=== PATIENT | female | born 1990 | race Hispanic/Latino ===

== ENCOUNTER 2018-02-21 18:07 | Emergency (ER) | payer BC, MEDICAID, OTHER ==
[~2018-02-21 18:07] MED LIST: DOCU-116 PO; IBUP-1673 PO; IBUP-2071 PO
[2018-02-21 19:13] LABS: BASOPHILS % (AUTO) 0.5 % (0.0-5.0); EOSINOPHILS % (AUTO) 1.3 % (0.0-8.0); HEMATOCRIT 35.2 % (36-48); LYMPHOCYTES % (AUTO) 24.9 % (21.0-51.0); MEAN CORPUSCULAR HEMOGLOBIN 24.9 pg (27.0-33.0); MEAN CORPUSCULAR HGB CONC 33.1 g/dL (32.0-36.0); MEAN CORPUSCULAR VOLUME 75.2 fL (79-99); MONOCYTES % (AUTO) 5.8 % (3.0-13.0); NEUTROPHILS % (AUTO) 67.5 % (40.0-77.0); PLATELET COUNT (AUTO) 445 K/uL (130-400); RED BLOOD CELL COUNT(AUTO) 4.67 MIL/uL (4.00-5.50); RED CELL DISTRIBUTION WIDTH 17.5 % (11.0-15.5)
[2018-02-21 19:22] LABS: CREATININE 0.7 mg/dL (0.5-1.5); POTASSIUM 3.6 mmol/L (3.5-5.1)
[2018-02-21 19:34] LABS: BILIRUBIN,TOTAL 0.8 mg/dL (0.2-1.0); TOTAL PROTEIN, SERUM 8.2 g/dL (6.0-8.3)
[2018-02-21 19:34] LABS: APPEARANCE,URINE Clear (CLEAR); BILIRUBIN,URINE Negative (NEGATIVE); COLOR,URINE Yellow (YELLOW); GLUCOSE, URINE (UA) Negative (NEGATIVE); KETONES,URINE 15 mg/dL (NEGATIVE); LEUKOCYTE ESTERASE ,URINE Small (NEGATIVE); NITRATE,URINE Negative (NEGATIVE); OCCULT BLOOD,URINE Small (NEGATIVE); PH,URINE 6.5 (5.0-8.0); PROTEIN,URINE Negative (NEGATIVE)
[2018-02-21 19:47] LABS: BACTERIA,URINE Few /HPF (None Seen); RBC,URINE None Seen /HPF (0-1)
== END 2018-02-21 21:37 | disposition home or self-care (01) ==
LOC: EDH 18:07
DX: O20.9 Hemorrhage in early pregnancy, unspecified (principal); O99.511 Diseases of the respiratory system complicating pregnancy, first trimester; J45.909 Unspecified asthma, uncomplicated; O99.011 Anemia complicating pregnancy, first trimester; Z3A.08 8 weeks gestation of pregnancy
CPT/HCPCS: 36415; 76817; 80053; 81001; 84702; 85025; 86900; 86901

== ENCOUNTER 2019-03-20 02:54 | Emergency (ER) | payer OTHER ==
[2019-03-20 03:31] LABS: BASOPHILS % (AUTO) 0.5 % (0.0-5.0); EOSINOPHILS % (AUTO) 1.9 % (0.0-8.0); HEMATOCRIT 30.2 % (36-48); LYMPHOCYTES % (AUTO) 26.2 % (21.0-51.0); MEAN CORPUSCULAR HEMOGLOBIN 25.7 pg (27.0-33.0); MEAN CORPUSCULAR HGB CONC 33.1 g/dL (32.0-36.0); MEAN CORPUSCULAR VOLUME 77.7 fL (79-99); MONOCYTES % (AUTO) 7.7 % (3.0-13.0); NEUTROPHILS % (AUTO) 63.7 % (40.0-77.0); PLATELET COUNT (AUTO) 336 K/uL (130-400); RED BLOOD CELL COUNT(AUTO) 3.89 MIL/uL (4.00-5.50); RED CELL DISTRIBUTION WIDTH 17.3 % (11.0-15.5)
[2019-03-20 04:05] LABS: CREATININE 0.6 mg/dL (0.5-1.5)
[2019-03-20 04:10] LABS: POTASSIUM 2.9 mmol/L (3.5-5.1)
[2019-03-20] MEDS ORDERED: POTASSIUM CHLORIDE 20 MEQ ERTAB PO ONE (04:16)
[2019-03-20 05:12] LABS: APPEARANCE,URINE Clear (CLEAR); BILIRUBIN,URINE Negative (NEGATIVE); COLOR,URINE Yellow (YELLOW); GLUCOSE, URINE (UA) Negative (NEGATIVE); KETONES,URINE >=80 mg/dL (NEGATIVE); NITRATE,URINE Negative (NEGATIVE); OCCULT BLOOD,URINE Negative (NEGATIVE); PROTEIN,URINE Negative (NEGATIVE)
[2019-03-20] MEDS ORDERED: SODIUM CHLORIDE 0.9% 1000ML 1,000 ML IV ONE (05:21)
[2019-03-20 05:34] LABS: LEUKOCYTE ESTERASE ,URINE TRACE (NEGATIVE)
[2019-03-20 05:36] LABS: BACTERIA,URINE Rare /HPF (None Seen); MUCUS,URINE Many LPF (None Seen); RBC,URINE None Seen /HPF (0-1); SQUAMOUS EPITHELIAL CELL,UR Few /HPF (0-2)
== END 2019-03-20 06:17 | disposition home or self-care (01) ==
LOC: EDH 02:54
DX: O99.012 Anemia complicating pregnancy, second trimester (principal); O99.512 Diseases of the respiratory system complicating pregnancy, second trimester; O26.892 Other specified pregnancy related conditions, second trimester; R10.2 Pelvic and perineal pain; E86.0 Dehydration; J45.909 Unspecified asthma, uncomplicated; Z3A.14 14 weeks gestation of pregnancy
CPT/HCPCS: 36415; 76805; 80048; 81001; 84702; 85025; 96360; 99285; J7030

== ENCOUNTER 2019-04-14 22:20 | Observation (INO) | payer MEDICAID, OTHER ==
[2019-04-14 23:19] LABS: APPEARANCE,URINE CLEAR (CLEAR); BILIRUBIN,URINE SMALL (NEGATIVE); COLOR,URINE YELLOW (YELLOW); GLUCOSE, URINE (UA) NEGATIVE (NEGATIVE); KETONES,URINE >=80 mg/dL (NEGATIVE); LEUKOCYTE ESTERASE ,URINE TRACE (NEGATIVE); NITRATE,URINE NEGATIVE (NEGATIVE); OCCULT BLOOD,URINE NEGATIVE (NEGATIVE); PH,URINE 6.5 (5.0-8.0); PROTEIN,URINE TRACE mg/dL (NEGATIVE); UROBILINOGEN,URINE >=8.0 mg/dL (0.2-1.0)
[2019-04-14 23:35] LABS: BACTERIA,URINE Rare /HPF (None Seen); MUCUS,URINE Many LPF (None Seen); RBC,URINE None Seen /HPF (0-1); SQUAMOUS EPITHELIAL CELL,UR Few /HPF (0-2)
[2019-04-14 23:48] LABS: BASOPHILS % (AUTO) 0.3 % (0.0-5.0); EOSINOPHILS % (AUTO) 1.6 % (0.0-8.0); HEMATOCRIT 28.2 % (36-48); LYMPHOCYTES % (AUTO) 21.3 % (21.0-51.0); MEAN CORPUSCULAR HEMOGLOBIN 25.5 pg (27.0-33.0); MEAN CORPUSCULAR HGB CONC 33.1 g/dL (32.0-36.0); MEAN CORPUSCULAR VOLUME 77.1 fL (79-99); MONOCYTES % (AUTO) 6.9 % (3.0-13.0); NEUTROPHILS % (AUTO) 69.9 % (40.0-77.0); PLATELET COUNT (AUTO) 261 K/uL (130-400); RED BLOOD CELL COUNT(AUTO) 3.66 MIL/uL (4.00-5.50); WHITE BLOOD COUNT (AUTO) 5.3 K/uL (4.8-10.8)
[2019-04-14] MEDS ORDERED: MAGNESIUM 2GM PREMIX 50ML 50 ML IV ONE (23:50)
[2019-04-14 23:51] LABS: ALBUMIN 2.8 g/dL (3.5-5.0); BILIRUBIN,DIRECT 0.1 mg/dL (0.0-0.3); BILIRUBIN,TOTAL 0.8 mg/dL (0.2-1.0); CREATININE 0.5 mg/dL (0.5-1.5); TOTAL PROTEIN, SERUM 6.6 g/dL (6.0-8.3)
[2019-04-14] MEDS ORDERED: ACETAMINOPHEN 325 MG TAB ONE (23:51)
[2019-04-14] MEDS ORDERED: SODIUM CHLORIDE 0.9% 1000ML 1,000 ML IV ONE (23:51)
[2019-04-14 23:57] LABS: POTASSIUM 2.7 mmol/L (3.5-5.1)
[2019-04-15] MEDS ORDERED: POTASSIUM BICARB/CIT AC 25 MEQ TABLET.EFF ONE (00:30)
[2019-04-15] MEDS ORDERED: SODIUM CHLORIDE 0.9% 1000ML 1,000 ML IV ONE ×2 (00:57→03:38)
[2019-04-15] MEDS ORDERED: LACTATED RINGERS 1000ML 1,000 ML IV SCH (04:15)
[2019-04-15 04:43] LABS: BASOPHILS % (AUTO) 0.4 % (0.0-5.0); EOSINOPHILS % (AUTO) 2.9 % (0.0-8.0); HEMATOCRIT 24.6 % (36-48); LYMPHOCYTES % (AUTO) 32.3 % (21.0-51.0); MEAN CORPUSCULAR HEMOGLOBIN 25.3 pg (27.0-33.0); MEAN CORPUSCULAR HGB CONC 32.5 g/dL (32.0-36.0); MEAN CORPUSCULAR VOLUME 77.8 fL (79-99); MONOCYTES % (AUTO) 8.1 % (3.0-13.0); NEUTROPHILS % (AUTO) 56.3 % (40.0-77.0); PLATELET COUNT (AUTO) 234 K/uL (130-400); RED BLOOD CELL COUNT(AUTO) 3.16 MIL/uL (4.00-5.50); RED CELL DISTRIBUTION WIDTH 16.3 % (11.0-15.5); WHITE BLOOD COUNT (AUTO) 4.4 K/uL (4.8-10.8)
[2019-04-15 04:46] LABS: CREATININE 0.4 mg/dL (0.5-1.5); POTASSIUM 4.2 mmol/L (3.5-5.1)
[2019-04-15] MEDS: POTASSIUM CHLORIDE 20 MEQ ERTAB PO PRN ×2 (05:33→07:27)
== END 2019-04-15 08:30 | disposition home or self-care (01) ==
LOC: EDH 22:20 → LDH 22:21 → UNDOADMIN 22:21 → LDH 04-15 03:30 → INTOOBSV 04-15 03:30
DX: O99.282 Endocrine, nutritional and metabolic diseases complicating pregnancy, second trimester (principal); E87.6 Hypokalemia; O26.52 Maternal hypotension syndrome, second trimester; O21.8 Other vomiting complicating pregnancy; O20.0 Threatened abortion; Z3A.18 18 weeks gestation of pregnancy; Z79.899 Other long term (current) drug therapy
CPT/HCPCS: 36415 ×2; 76805; 80048 ×2; 80076; 81001; 84702; 85025 ×2; 93005; 96360; 96361; 99291; G0378 ×5; J3475; J7030 ×3

== ENCOUNTER 2019-04-16 20:18 | Emergency (ER) | payer MEDICAID ==
[2019-04-16 20:43] LABS: BASOPHILS % (AUTO) 0.4 % (0.0-5.0); EOSINOPHILS % (AUTO) 0.8 % (0.0-8.0); LYMPHOCYTES % (AUTO) 17.1 % (21.0-51.0); MEAN CORPUSCULAR HEMOGLOBIN 26.1 pg (27.0-33.0); MEAN CORPUSCULAR HGB CONC 33.3 g/dL (32.0-36.0); MEAN CORPUSCULAR VOLUME 78.5 fL (79-99); MONOCYTES % (AUTO) 5.5 % (3.0-13.0); NEUTROPHILS % (AUTO) 76.2 % (40.0-77.0); PLATELET COUNT (AUTO) 308 K/uL (130-400); RED BLOOD CELL COUNT(AUTO) 4.08 MIL/uL (4.00-5.50); RED CELL DISTRIBUTION WIDTH 17.4 % (11.0-15.5)
[2019-04-16 20:50] LABS: CREATININE 0.5 mg/dL (0.5-1.5); POTASSIUM 3.4 mmol/L (3.5-5.1)
[2019-04-16 20:55] LABS: BILIRUBIN,TOTAL 0.4 mg/dL (0.2-1.0); TOTAL PROTEIN, SERUM 7.1 g/dL (6.0-8.3)
[2019-04-16 21:55] LABS: APPEARANCE,URINE Clear (CLEAR); BILIRUBIN,URINE Negative (NEGATIVE); COLOR,URINE Dark Yellow (YELLOW); GLUCOSE, URINE (UA) Negative (NEGATIVE); KETONES,URINE >=160 mg/dL (NEGATIVE); LEUKOCYTE ESTERASE ,URINE Small (NEGATIVE); NITRATE,URINE Negative (NEGATIVE); OCCULT BLOOD,URINE Negative (NEGATIVE); PROTEIN,URINE Trace mg/dL (NEGATIVE)
[2019-04-16 22:03] LABS: AMPHET/METH SCREEN,URINE NEGATIVE (NEGATIVE); BARBITURATE SCREEN, URINE NEGATIVE (NEGATIVE); BENZODIAZEPINES SCREEN,URINE NEGATIVE (NEGATIVE); CANNABINOID SCREEN,URINE NEGATIVE (NEGATIVE); COCAINE SCREEN,URINE NEGATIVE (NEGATIVE); OPIATE SCREEN,URINE NEGATIVE (NEGATIVE); PHENCYCLIDINE SCREEN,URINE NEGATIVE (NEGATIVE)
[2019-04-16 22:04] LABS: BACTERIA,URINE Few /HPF (None Seen); MUCUS,URINE Moderate LPF (None Seen); RBC,URINE 0-1 /HPF (0-1); SQUAMOUS EPITHELIAL CELL,UR Few /HPF (0-2)
[2019-04-16] MEDS ORDERED: SODIUM CHLORIDE 0.9% 1000ML 1,000 ML IV ONE (22:31)
[2019-04-16] MEDS ORDERED: POTASSIUM CHLORIDE 10% ELIXIR 20 MEQ/15 ML UDCUP ONE (22:32)
[2019-04-16] MEDS ORDERED: MAGNESIUM 2GM PREMIX 50ML 50 ML IV ONE (23:04)
[2019-04-16] MEDS ORDERED: ACETAMINOPHEN 325 MG TAB ONE (23:20)
== END 2019-04-17 00:24 | disposition home or self-care (01) ==
LOC: EDH 20:18
DX: O26.892 Other specified pregnancy related conditions, second trimester (principal); O99.512 Diseases of the respiratory system complicating pregnancy, second trimester; R51 Headache; R20.2 Paresthesia of skin; E87.6 Hypokalemia; E86.0 Dehydration; J45.909 Unspecified asthma, uncomplicated; Z3A.19 19 weeks gestation of pregnancy
CPT/HCPCS: 36415; 80053; 80305; 81001; 83735; 84443; 85025; 87804 ×2; 96365; 99284; J3475; J7030

== ENCOUNTER 2019-07-22 13:23 | Observation (INO) | payer MEDICAID ==
[2019-07-22 14:24] LABS: APPEARANCE,URINE TURBID (CLEAR); BILIRUBIN,URINE SMALL (NEGATIVE); COLOR,URINE YELLOW (YELLOW); GLUCOSE, URINE (UA) NEGATIVE (NEGATIVE); KETONES,URINE NEGATIVE (NEGATIVE); LEUKOCYTE ESTERASE ,URINE SMALL (NEGATIVE); NITRATE,URINE NEGATIVE (NEGATIVE); OCCULT BLOOD,URINE NEGATIVE (NEGATIVE); PROTEIN,URINE NEGATIVE (NEGATIVE)
[2019-07-22 14:44] LABS: BACTERIA,URINE Few /HPF (None Seen); RBC,URINE 0-1 /HPF (0-1); SQUAMOUS EPITHELIAL CELL,UR Few /HPF (0-2)
[2019-07-22 14:45] LABS: AMORPHOUS SEDIMENT,UR Moderate /LPF (None Seen)
[2019-07-22] MEDS ORDERED: MAG HYDROX/AL HYDROX/SIMETH ES 30 ML SUSP UDCUP PO SCH (14:45)
[2019-07-22] MEDS ORDERED: MAG HYDROX/AL HYDROX/SIMETH ES 30 ML SUSP UDCUP ONE (15:00)
== END 2019-07-22 17:40 | disposition home or self-care (01) ==
LOC: EDH 13:23 → LDH 13:37
PROVIDERS: ADMIT Obstetrics & Gynecology; ATTEND Obstetrics & Gynecology
DX: O26.893 Other specified pregnancy related conditions, third trimester (principal); R10.13 Epigastric pain; R11.10 Vomiting, unspecified; R19.7 Diarrhea, unspecified; O99.513 Diseases of the respiratory system complicating pregnancy, third trimester; J45.909 Unspecified asthma, uncomplicated; Z3A.32 32 weeks gestation of pregnancy
CPT/HCPCS: 81001; 99284; G0378 ×4; 96360; 96361

== ENCOUNTER 2019-09-04 20:18 | Inpatient (IN) | payer MEDICAID ==
[~2019-09-04] VITALS: Ht 154.9 cm; Wt 78.5 kg
[2019-09-04] MEDS ORDERED: EPHEDRINE SULFATE 50 MG/ML AMPULE IVP PRN (21:00)
[2019-09-04] MEDS ORDERED: ROPIVACAINE 0.2% 100ML VIAL 100 ML EP PRN (21:00)
[2019-09-04] MEDS ORDERED: MEPERIDINE-PF 50 MG/ML SYG IVP PRN (21:00)
[2019-09-04] MEDS ORDERED: MISOPROSTOL 100 MCG TABLET VG SCH (21:00)
[2019-09-04] MEDS ORDERED: OXYTOCIN-LR 20 UNITS/1000 ML 1,000 ML IV SCH (21:00)
[2019-09-04] MEDS ORDERED: LACTATED RINGERS 500 ML 500 ML IV PRN (21:00)
[2019-09-04] MEDS ORDERED: PROMETHAZINE HCL 25 MG/ML 1ML AMPULE IM PRN (21:00)
[2019-09-04] MEDS ORDERED: NALOXONE HCL 0.4 MG/1 ML ML IV PRN (21:00)
[2019-09-04 21:28] LABS: APPEARANCE,URINE Clear (CLEAR); BILIRUBIN,URINE Negative (NEGATIVE); COLOR,URINE Yellow (YELLOW); GLUCOSE, URINE (UA) Negative (NEGATIVE); KETONES,URINE Negative (NEGATIVE); LEUKOCYTE ESTERASE ,URINE Trace (NEGATIVE); NITRATE,URINE Negative (NEGATIVE); OCCULT BLOOD,URINE Negative (NEGATIVE); PH,URINE 6.5 (5.0-8.0); PROTEIN,URINE Negative (NEGATIVE)
[2019-09-04 21:39] LABS: BACTERIA,URINE Few /HPF (None Seen); MUCUS,URINE Few LPF (None Seen)
[2019-09-04] MEDS: LACTATED RINGERS 1000ML 1,000 ML IV PRN (21:54)
[2019-09-04 21:55] VITALS: BP 130/78
[2019-09-04 22:07] LABS: MEAN CORPUSCULAR HEMOGLOBIN 20.9 pg (27.0-33.0); MEAN CORPUSCULAR HGB CONC 31.2 g/dL (32.0-36.0); MEAN CORPUSCULAR VOLUME 67.1 fL (79-99); NUCLEATED RED BLOOD CELLS 0.1 % (0.0-0.19); PLATELET COUNT (AUTO) 308 K/uL (130-400); RED BLOOD CELL COUNT(AUTO) 3.88 MIL/uL (4.00-5.50)
[2019-09-05] MEDS ORDERED: TERBUTALINE SULFATE VIAL 1MG/ML SQ ONE (00:17)
[2019-09-05] MEDS ORDERED: TERBUTALINE SULFATE VIAL 1MG/ML SQ PRN (00:45)
[2019-09-05] MEDS: LACTATED RINGERS 1000ML 1,000 ML IV PRN (03:37)
[2019-09-05] MEDS ORDERED: OXYTOCIN 10 USP UNITS/ML 20 UNIT in LACTATED RINGERS 1000ML 1,000 ML IV SCH (05:00)
[2019-09-05] MEDS ORDERED: PREN1TAB80 PO (06:21)
[2019-09-05] MEDS ORDERED: CEFAZOLIN SODIUM 1 GM VIAL IVP PRN (07:00)
[2019-09-05] MEDS ORDERED: LACTATED RINGERS 1000ML 1,000 ML IV SCH (07:00)
[2019-09-05] MEDS ORDERED: CALDOLOR 800MG+NS 250ML 250 ML IV PRN (07:00)
[2019-09-05] MEDS ORDERED: CITRIC ACID/SODIUM CITRATE 30 ML UDCUP ONE (08:25)
[2019-09-05] MEDS ORDERED: METHYLERGONOVINE MALEATE 0.2 MG/1 ML ML ONE (08:28)
[2019-09-05] MEDS ORDERED: DURAMORPH PF1 MG/ML 10ML AMP IV ONE (08:29)
[2019-09-05] MEDS ORDERED: FENTANYL CITRATE PF 50 MCG/1 ML 2ML VIAL ONE (08:29)
[2019-09-05] MEDS ORDERED: CEFAZOLIN SODIUM 1 GM VIAL IVP ONE (08:40)
[2019-09-05] MEDS ORDERED: MIDAZOLAM HCL 1 MG/ML 2ML VIAL ONE (08:49)
[2019-09-05] MEDS ORDERED: KETAMINE HCL 100 MG/ML 5ML VIAL IJ ONE (08:49)
[2019-09-05] MEDS ORDERED: OXYTOCIN 10 USP UNITS/ML ONE ×2 (08:51→09:10)
[2019-09-05] MEDS ORDERED: METHYLERGONOVINE MALEATE 0.2 MG/1 ML ML IM ONE (08:55)
[2019-09-05] MEDS ORDERED: PHENYLEPHRINE HCL 10 MG/ML 1ML VIAL IV ONE (09:24)
[2019-09-05] MEDS ORDERED: ONDANSETRON HCL 4 MG/2 ML VIAL ONE (09:31)
[2019-09-05] MEDS ORDERED: HYDROCODONE/ACETAMINOPHEN 5/325 MG TAB PO PRN (10:00)
[2019-09-05] MEDS ORDERED: BISACODYL 10 MG SUPP.RECT RC PRN (10:00)
[2019-09-05] MEDS ORDERED: SODIUM CHLORIDE 0.9% 10 ML VIAL IVP PRN (10:00)
[2019-09-05] MEDS ORDERED: LANOLIN 30GM OINTMENT TP PRN (10:00)
[2019-09-05] MEDS ORDERED: DIPHENHYDRAMINE HCL 25 MG CAPSULE PO PRN (10:00)
[2019-09-05] MEDS ORDERED: OXYTOCIN-LR 20 UNITS/1000 ML 1,000 ML IV PRN (10:00)
[2019-09-05] MEDS ORDERED: ACETAMINOPHEN EXTRA STRENGTH 500 MG TABLET PO PRN (10:00)
[2019-09-05] MEDS ORDERED: MEASLES/MUMPS/RUBELLA VACCINE, LIVE 0.5 ML/VIAL SQ SCH (10:00)
[2019-09-05] MEDS ORDERED: DIPH,PERTUSS(ACELL),TET VAC/PF 0.5 ML VIAL IM SCH (10:00)
[2019-09-05] MEDS ORDERED: MEPERIDINE-PF 75 MG/ML SYG IM PRN (10:00)
[2019-09-05] MEDS ORDERED: NALOXONE HCL 0.4 MG/1 ML ML IVP PRN (10:30)
[2019-09-05] MEDS ORDERED: ONDANSETRON HCL 4 MG/2 ML VIAL IVP PRN (10:30)
[2019-09-05] MEDS ORDERED: EPHEDRINE SULFATE 50 MG/ML AMPULE IVP PRN (10:30)
[2019-09-05 11:30] VITALS: BP 132/78
[2019-09-05] MEDS ORDERED: MEPERIDINE-PF 25 MG/ML SYG ONE ×2 (13:02→23:18)
[2019-09-05] MEDS ORDERED: MEPERIDINE-PF 50 MG/ML SYG ONE ×2 (13:02→23:17)
[2019-09-05] MEDS: PROMETHAZINE HCL 25 MG/ML 1ML AMPULE IM PRN ×2 (13:10→23:23)
[2019-09-05 16:24] VITALS: BP 126/84
[2019-09-05] MEDS ORDERED: FLU VACC QS2019-20 36MOS UP/PF 60 MCG/0.5 ML ML IM ONE (17:00)
[2019-09-05] MEDS: CALDOLOR 800MG+NS 250ML 250 ML IV SCH (17:38)
[2019-09-05] MEDS: DEXTROSE 5 %-0.45 % NACL 1,000 ML IV PRN (17:38)
[2019-09-05 19:53] VITALS: BP 103/70
[2019-09-05 20:00] VITALS: BP 103/70
[2019-09-05] MEDS: DOCUSATE SODIUM 100 MG CAP PO SCH (21:25)
[2019-09-05] MEDS: SIMETHICONE 80 MG TAB.CHEW PO PRN (21:25)
[2019-09-06] VITALS (7 sets, daily range): BP systolic 102–126; BP diastolic 51–74
[2019-09-06] MEDS: CALDOLOR 800MG+NS 250ML 250 ML IV SCH (02:06)
[2019-09-06] MEDS: DEXTROSE 5 %-0.45 % NACL 1,000 ML IV PRN (02:07)
[2019-09-06 05:32] LABS: PLATELET COUNT (AUTO) 238 K/uL (130-400)
[2019-09-06 06:09] LABS: MEAN CORPUSCULAR HEMOGLOBIN 20.7 pg (27.0-33.0); MEAN CORPUSCULAR HGB CONC 30.6 g/dL (32.0-36.0); MEAN CORPUSCULAR VOLUME 67.7 fL (79-99); RED BLOOD CELL COUNT(AUTO) 2.87 MIL/uL (4.00-5.50); RED CELL DISTRIBUTION WIDTH 19.4 % (11.0-15.5); WHITE BLOOD COUNT (AUTO) 9.3 K/uL (4.8-10.8)
[2019-09-06 06:16] LABS: HEMATOCRIT 19.4 % (36-48)
--- NOTE | 2019-09-06 06:35 | NUR ---
Communication: Dr. Mccormack called via Telephone informed that Patient Hemoglobin is low 5.9 and hematocrit of 19.4, received orders to transfuse 2 units of Pack red blood cells 2 units give Tylenol 1000 mg. po. once and Benadryl 25 mg p.o. once before blood transfusion.
[2019-09-06] MEDS ORDERED: SODIUM CHLORIDE 0.9% 1000ML 1,000 ML IV ONE (06:45)
[2019-09-06] MEDS ORDERED: DIPHENHYDRAMINE HCL 25 MG CAPSULE PO SCH (06:45)
[2019-09-06] MEDS ORDERED: ACETAMINOPHEN EXTRA STRENGTH 500 MG TABLET PO SCH (07:00)
--- NOTE | 2019-09-06 07:45 | NUR ---
FIRST UNIT RBCS FIRST UNIT OF RBCS STARTED ORDERED. BASELINE VITAL SIGNS TAKEN
[2019-09-06 08:12] LABS: HEPATITIS Bs ANTIGEN SCREEN P Negative (Negative)
[2019-09-06] MEDS: DOCUSATE SODIUM 100 MG CAP PO SCH ×2 (08:37→20:39)
[2019-09-06] MEDS: LIDOCAINE 5% TOPICAL PATCH TP SCH (08:38)
[2019-09-06] MEDS ORDERED: FLU VACC QS2019-20 36MOS UP/PF 60 MCG/0.5 ML ML IM ONE (08:41)
[2019-09-06] MEDS: SIMETHICONE 80 MG TAB.CHEW PO PRN ×4 (08:44→20:39)
--- NOTE | 2019-09-06 09:15 | NUR ---
PROVIDER ROUNDING DR. LAND AT BEDSIDE TO ASSESS PATIENT INCISION. PLAN OF CARE DISCUSSED WITH PATIENT. PATIENT ASKED TO FOLLOW UP WITH DR LAND IN 2 WEEKS.
[2019-09-06] MEDS: IBUPROFEN 800 MG TAB PO SCH ×2 (09:53→17:51)
--- NOTE | 2019-09-06 10:10 | NUR ---
FIRST UNIT RBCS FIRST UNIT COMPLETED. PATIENT TOLERATED WELL. POST TRANSFUSION VITAL SIGNS TAKEN AND WITHIN NORMAL LIMITS
--- NOTE | 2019-09-06 10:55 | NUR ---
SECOND UNIT SECOND UNIT OF PRBCS ADMINISTERED. BASELINE VITAL SIGNS TAKEN AND WITHIN NORMAL LIMITS.
--- NOTE | 2019-09-06 14:35 | NUR ---
SECOND UNIT PRBCS SECOND UNIT PRBCS COMPLETED. PATIENT TOLERATED WELL. VITAL SIGNS TAKEN AND WITHIN NORMAL LIMITS.
--- NOTE | 2019-09-06 15:40 | NUR ---
ASSISTED OUT OF BED GAMBLE CATHETER DISCONTINUED, MARISELA CARE PROVIDED. NEW PADS PLACED. ABDOMINAL BINDER PLACED OVER INCISION. PATIENT AMBULATED TO SIT IN BEDSIDE CHAIR. PATIENT TOLERATED WELL.
--- NOTE | 2019-09-06 21:00 | NUR ---
Activity: Patient took a shower claimed, : she's in pain will take medication after she's done. Lidocaine Patch taken out while patient showered,
[2019-09-06] MEDS: ACETAMINOPHEN-CODEINE 300/30MG TAB PO PRN (21:58)
[2019-09-07] MEDS: IBUPROFEN 800 MG TAB PO SCH ×4 (02:00→17:43)
[2019-09-07 03:45] VITALS: BP 115/65
[2019-09-07 08:00] VITALS: BP 131/77
--- NOTE | 2019-09-07 08:00 | NUR ---
PATIENT ASSESSED AND INCISION IS OPEN TO AIR WITH DERMABOND. PLAN FOR DISCHARGE DISCUSSED WITH PATIENT. PATIENT DENIES ANY DIZZINESS ON AMBULATION AND STATES ONLY FEELING TIRED. PULSE IS 77 AT THIS TIME.
[2019-09-07] MEDS: SIMETHICONE 80 MG TAB.CHEW PO PRN ×4 (08:55→21:37)
[2019-09-07] MEDS: LIDOCAINE 5% TOPICAL PATCH TP SCH (08:55)
[2019-09-07] MEDS: DOCUSATE SODIUM 100 MG CAP PO SCH ×2 (08:55→21:37)
--- NOTE | 2019-09-07 10:00 | NUR ---
DR. FAJARDO ROUNDED AND INDICATED TO PATIENT THAT WOULD NOT BE GOING HOME TODAY. WAS MADE AWARE OF ORDER GIVEN THAT PATIENT COULD BE DISCHARGED ONCE BABY IS DISCHARGED AND COULD STAY ANOTHER DAY PER SLEEVE SETTER LOCKSTITCH.
[2019-09-07 12:20] VITALS: BP 124/70
[2019-09-07 17:15] VITALS: BP 133/90
--- NOTE | 2019-09-07 18:00 | NUR ---
PATIENT GIVEN SCHEDULED MOTRIN AND INSTRUCTED TO WALK IN HALLWAY. DENIES ANY PROBLEMS AT THIS TIME AND REMAINS STABLE.
[2019-09-07 19:22] VITALS: BP 137/79
[2019-09-07 23:53] VITALS: BP 122/71
[2019-09-08] MEDS: ACETAMINOPHEN-CODEINE 300/30MG TAB PO PRN (00:58)
[2019-09-08] MEDS: IBUPROFEN 800 MG TAB PO SCH ×2 (02:20→11:15)
[2019-09-08 03:22] VITALS: BP 143/87
[2019-09-08 07:46] VITALS: BP 140/86
[2019-09-08] MEDS: DOCUSATE SODIUM 100 MG CAP PO SCH (08:37)
[2019-09-08] MEDS: LIDOCAINE 5% TOPICAL PATCH TP SCH (08:37)
[2019-09-08] MEDS: SIMETHICONE 80 MG TAB.CHEW PO PRN (08:37)
--- NOTE | 2019-09-08 09:00 | NUR ---
DR. LAND ROUNDED AND WAS MADE AWARE OF PATIENT STAYING OVER AN ADDITIONAL DAY TO BABY HELD FOR ANOTHER DAY AND WOULD BE GOING HOME TODAY. CURRENT STATUS GIVEN AND CONFIRMED TO DISCHARGE TODAY.
[2019-09-08 12:00] VITALS: BP 142/84
--- NOTE | 2019-09-08 13:05 | NUR ---
PATIENT WAS GIVEN DISCHARGE INSTRUCTIONS AND SCRIPT FOR PAIN MANAGEMENT AT HOME GIVEN AND INSTRUCTED ON DOSAGE AND FREQUENCY. VERBALIZED UNDERSTANDING INSTRUCTIONS GIVEN.
--- NOTE | 2019-09-08 13:35 | NUR ---
PATIENT WAS TAKEN VIA W/C TO FAMILY VEHICLE AND CARRIED BABY IN ARMS. PATIENT STABLE AND DENIES PAIN.
== END 2019-09-08 13:35 | disposition home or self-care (01) | DRG 540 ==
LOC: LDH 20:18 → WSH 09-05 11:27
PROVIDERS: ADMIT Obstetrics & Gynecology; ATTEND Obstetrics & Gynecology
PROC: 3E02340 Introduction of Influenza Vaccine into Muscle, Percutaneous Approach (ICD-10-PCS; 2019-09-05)
PROC: 3E0234Z Introduction of Serum, Toxoid and Vaccine into Muscle, Percutaneous Approach (ICD-10-PCS; 2019-09-05)
PROC: 3E0134Z Introduction of Serum, Toxoid and Vaccine into Subcutaneous Tissue, Percutaneous Approach (ICD-10-PCS; 2019-09-05)
PROC: 10D00Z1 Extraction of Products of Conception, Low, Open Approach (ICD-10-PCS; principal; 2019-09-05 08:30)
PROC: 30233N1 Transfusion of Nonautologous Red Blood Cells into Peripheral Vein, Percutaneous Approach (ICD-10-PCS; 2019-09-06)
DX: O77.9 Labor and delivery complicated by fetal stress, unspecified (principal); D50.9 Iron deficiency anemia, unspecified; O99.02 Anemia complicating childbirth; O62.2 Other uterine inertia; Z37.0 Single live birth; Z3A.39 39 weeks gestation of pregnancy; Z23 Encounter for immunization
CPT/HCPCS: 36415; 59510; 81001; 85027; 85060; 86592; 86850; 86900; 86901; 86922; 87340; 90715; A4344; G0378; J0690; J1741; J2175; J2210; J2250; J2274; J2370; J2405; J2550; J2590; J3010; J3105; J3490; J7120; P9016; Q0163; Q2035